=== PATIENT | female | born 1960 | race Caucasian/White ===

== ENCOUNTER 2018-07-01 14:41 | Emergency (ER) | payer BC, OTHER ==
--- NOTE | 2018-07-01 14:47 | EDM.PDOC ---
ED HPI GENERAL MEDICAL PROBLEM - General Chief Complaint: ENT Problem Stated Complaint: EAR INFECTION Time Seen by Provider: 07/01/18 14:44 Source of Information: Reports: Patient History Limitations: Reports: No Limitations - History of Present Illness INITIAL COMMENTS - FREE TEXT/NARRATIVE: HISTORY AND PHYSICAL: History of present illness: Patient is a 58-year-old female who presents to the emergency room with complaints of nausea and ear pain. Patient reports that she has had a known ear infection for approximately 2-3 weeks but has tried to hold off on seeing a provider. She states she has seen the analytical research chemist and was told there was nothing makes it to about her chronic ear infections. Reports that the pain has now made her nauseated and dizzy. Patient denies any fever, chills, headache, change in vision, syncope or near syncope. Denies hitting her head or any LOC. Denies any chest pain, back pain, shortness of breath or cough. Denies any abdominal pain, nausea, vomiting, diarrhea, constipation or dysuria. Has not noted any blood in urine or stool. Patient has been eating and drinking appropriately. Review of systems: As per history of present illness and below otherwise all systems reviewed and negative. Past medical history: As per history of present illness and as reviewed below otherwise noncontributory. Surgical history: As per history of present illness and as reviewed below otherwise noncontributory. Social history: See social history for further information Family history: As per history of present illness and as reviewed below otherwise noncontributory. Physical exam: General: Well-developed and well-nourished 58-year-old female. Alert and oriented. Nontoxic appearing and in no acute distress. HEENT: Atraumatic, normocephalic, pupils equal and reactive bilaterally, negative for conjunctival pallor or scleral icterus, mucous membranes moist, bilateral TMs erythematous with absent light reflex and no bulging, throat clear , neck supple, nontender, trachea midline. No drooling or trismus noted. No meningeal signs. No hot potato voice noted. Lungs: Clear to auscultation, breath sounds equal bilaterally, chest nontender. Heart: S1S2, regular rate and rhythm without overt murmur Abdomen: Soft, nondistended, nontender. Negative for masses or hepatosplenomegaly. Negative for costovertebral tenderness. Pelvis: Stable nontender. Genitourinary: Deferred. Rectal: Deferred. Skin: Intact, warm, dry. No lesions or rashes noted. Extremities: Atraumatic, moves all extremities per self with difficulty or deficits, negative for cords or calf pain. Neurovascular unremarkable. Neuro: Awake, alert, oriented. Cranial nerves II through XII unremarkable. Cerebellum unremarkable. Motor and sensory unremarkable throughout. Exam nonfocal. Notes: Did attempt to give Zofran and Rocephin IM to help alleviate her symptoms. Patient appears peaked and we'll give her IV fluids along with routine lab work to rule out any other complications. Lab work is unremarkable. EKG shows no acute findings; reviewed by Dr Grubbs as well. VSS. Supportive care measures were reviewed and discussed. Voices understanding and is agreeable to plan of care. Denies any further questions or concerns at this time. Diagnostics: CBC, CMP, troponin, EKG Therapeutics: Zofran ODT, Meclizine, Rocephin IM Prescription: Augmentin Impression: Bilateral Otitis Media Dizziness Plan: 1. Please use Tylenol and/or Ibuprofen as needed for pain and fever management. 2. Get plenty of Rest. Encourage fluids to prevent dehydration. 3. Please follow up with your primary care provider. Return to the ED as needed as discussed. Definitive disposition and diagnosis as appropriate pending reevaluation and review of above. left ear Pain Score (Numeric/FACES): 3 - Related Data Allergies Allergy/AdvReac Type Severity Reaction Status Date / Time No Known Allergies Allergy Verified 02/14/14 18:32 Home Meds: Home Meds . [No Known Home Meds] 02/14/14 [History] Past Medical History - Past Health History Medical/Surgical History: Denies Medical/Surgical History ED ROS ENT - Review of Systems Review Of Systems: ROS reveals no pertinent complaints other than HPI. ED EXAM, ENT - Physical Exam Exam: See Below (See dictation) Course - Vital Signs Last Recorded V/S: Last Vital Signs Temp 96.0 F 07/01/18 14:52 Pulse 97 07/01/18 14:52 Resp 16 07/01/18 14:52 BP 164/96 H 07/01/18 14:52 Pulse Ox 96 07/01/18 14:52 - Orders/Labs/Meds Orders: Active Orders 24 hr Category Date Time Status EKG Documentation Completion [RC] STAT Care 07/01/18 15:31 Active Ondansetron [Zofran ODT] Med 07/01/18 14:59 Active 8 mg PO ONETIME PRN Sodium Chloride 0.9% [Normal Saline] 1,000 ml Med 07/01/18 15:31 Active IV STAT Medication Orders Sodium Chloride (Normal Saline) 1,000 mls @ 999 mls/hr IV STAT ONE Stop: 07/01/18 16:31 Last Admin: 07/01/18 15:41 Dose: 999 mls/hr Ondansetron HCl (Zofran Odt) 8 mg PO ONETIME PRN PRN Reason: Nausea/Vomiting Last Admin: 07/01/18 15:13 Dose: 8 mg Labs: Laboratory Tests 07/01/18 07/01/18 Range/Units 15:39 15:39 WBC 9.67 (4.0-11.0) K/uL RBC 5.14 (4.30-5.90) M/uL Hgb 15.7 (12.0-16.0) g/dL Hct 44.4 (36.0-46.0) % MCV 86.4 (80.0-98.0) fL MCH 30.5 (27.0-32.0) pg MCHC 35.4 (31.0-37.0) g/dL RDW Std Deviation 40.4 (28.0-62.0) fl RDW Coeff of Thomas 13 (11.0-15.0) % Plt Count 188 (150-400) K/uL MPV 10.60 (7.40-12.00) fL Neut % (Auto) 84.2 H (48.0-80.0) % Lymph % (Auto) 10.2 L (16.0-40.0) % Toole % (Auto) 5.0 (0.0-15.0) % Eos % (Auto) 0.4 (0.0-7.0) % Baso % (Auto) 0.2 (0.0-1.5) % Neut # (Auto) 8.1 H (1.4-5.7) K/uL Lymph # (Auto) 1.0 (0.6-2.4) K/uL Toole # (Auto) 0.5 (0.0-0.8) K/uL Eos # (Auto) 0.0 (0.0-0.7) K/uL Baso # (Auto) 0.0 (0.0-0.1) K/uL Nucleated RBC % 0.0 /100WBC Nucleated RBCs # 0 K/uL Sodium 138 (136-145) mmol/L Potassium 4.1 (3.5-5.1) mmol/L Chloride 102 (98-107) mmol/L Carbon Dioxide 22.2 (21.0-32.0) mmol/L BUN 11 (7.0-18.0) mg/dL Creatinine 0.9 (0.6-1.0) mg/dL Est Cr Clr Drug Dosing 54.99 mL/min Estimated GFR (MDRD) > 60.0 ml/min Glucose 217 H (74-106) mg/dL Calcium 8.8 (8.5-10.1) mg/dL Total Bilirubin 0.5 (0.2-1.0) mg/dL AST 20 (15-37) IU/L ALT 38 (14-63) IU/L Alkaline Phosphatase 110 (46-116) U/L Troponin I < 0.050 (0.000-0.056) ng/mL Total Protein 7.8 (6.4-8.2) g/dL Albumin 4.0 (3.4-5.0) g/dL Globulin 3.8 (2.6-4.0) g/dL Albumin/Globulin Ratio 1.1 (0.9-1.6) Meds: Medications Generic Name Dose Route Start Last Admin Trade Name Freq PRN Reason Stop Dose Admin Sodium Chloride 1,000 mls @ 999 mls/hr 07/01/18 15:31 07/01/18 15:41 Normal Saline IV 07/01/18 16:31 999 mls/hr STAT ONE Administration Ondansetron HCl 8 mg 07/01/18 14:59 07/01/18 15:13 Zofran Odt PO 8 mg ONETIME PRN Administration Nausea/Vomiting Discontinued Medications Generic Name Dose Route Start Last Admin Trade Name Freq PRN Reason Stop Dose Admin Ceftriaxone Sodium 1 gm 07/01/18 15:01 07/01/18 15:13 Rocephin IM 07/01/18 15:02 1 gm ONETIME ONE Administration Lidocaine HCl 5 ml 07/01/18 15:05 07/01/18 15:13 Xylocaine-Mpf 1% INJECT 07/01/18 15:06 5 ml ONETIME ONE Administration Meclizine HCl 25 mg 07/01/18 15:01 07/01/18 15:13 Antivert PO 07/01/18 15:02 25 mg ONETIME ONE Administration Departure - Departure Time of Disposition: 16:29 Disposition: Home, Self-Care 01 Clinical Impression: Otitis media Qualifiers: Otitis media type: unspecified Laterality: bilateral Qualified Code(s): H66.93 - Otitis media, unspecified, bilateral - Discharge Information Referrals: PCP,Unknown [Primary Care Provider] - Forms: ED Department Discharge Additional Instructions: The following information is given to patients seen in the emergency department who are being discharged to home. This information is to outline your options for follow-up care. We provide all patients seen in our emergency department with a follow-up referral. The need for follow-up, as well as the timing and circumstances, are variable depending upon the specifics of your emergency department visit. If you don't have a primary care physician on staff, we will provide you with a referral. We always advise you to contact your personal physician following an emergency department visit to inform them of the circumstance of the visit and for follow-up with them and/or the need for any referrals to a consulting specialist. The emergency department will also refer you to a specialist when appropriate. This referral assures that you have the opportunity for follow-up care with a specialist. All of these measure are taken in an effort to provide you with optimal care, which includes your follow-up. Under all circumstances we always encourage you to contact your private physician who remains a resource for coordinating your care. When calling for follow-up care, please make the office aware that this follow-up is from your recent emergency room visit. If for any reason you are refused follow-up, please contact the [facility] at and asked to speak to the emergency department charge nurse. [facility] [address] [place] [id number] [place] [address] 1. Take the antibiotic as directed. Please use Tylenol and/or Ibuprofen as needed for pain and fever management. 2. Get plenty of Rest. Encourage fluids to prevent dehydration. 3. Please follow up with your primary care provider. Return to the ED as needed as discussed. - My Orders Last 24 Hours: My Active Orders 07/01/18 14:59 Ondansetron [Zofran ODT] 8 mg PO ONETIME PRN 07/01/18 15:31 EKG Documentation Completion [RC] STAT Sodium Chloride 0.9% [Normal Saline] 1,000 ml IV STAT - Assessment/Plan Last 24 Hours: My Active Orders 07/01/18 14:59 Ondansetron [Zofran ODT] 8 mg PO ONETIME PRN 07/01/18 15:31 EKG Documentation Completion [RC] STAT Sodium Chloride 0.9% [Normal Saline] 1,000 ml IV STAT
[2018-07-01] MEDS ORDERED: Ondansetron 4 MG Tab.DIS PO PRN (14:59)
[2018-07-01] MEDS ORDERED: cefTRIAXone 1 GM Vial IM ONE (15:01)
[2018-07-01] MEDS ORDERED: Meclizine 25 MG Tab PO ONE (15:01)
[2018-07-01] MEDS ORDERED: Sodium Chloride 0.9% 1,000 ML IV ONE (15:31)
[2018-07-01 16:24] LABS: CHLORIDE,CL 102 mmol/L (98-107); SODIUM,NA 138 mmol/L (136-145)
[2018-07-01] MEDS ORDERED: diazePAM 5 MG/ML MDV IVPUSH ONE (17:15)
--- NOTE | 2018-07-01 18:08 | CT ---
INDICATION: Headache, dizzy, left ear infection TECHNIQUE: CT Head without i.v. contrast. COMPARISON: None FINDINGS: CSF space: The ventricles are normal for age. Brain: No evidence of mass, acute infarction or hemorrhage is seen. No mass-effect or midline shift is seen. The brain parenchyma is otherwise normal in appearance with preservation of the kerns-white matter junction. Calvarium: The visualized paranasal sinuses are well aerated. The mastoid air cells are clear. The visualized orbits are grossly unremarkable. The calvarium is unremarkable in appearance with no fractures identified. IMPRESSION: 1. No evidence of acute infarction, intracranial hemorrhage, or mass-effect seen. Please note that all CT scans at this facility use dose modulation, iterative reconstruction, and/or weight-based dosing when appropriate to reduce radiation dose to as low as reasonably achievable. Dictated by: Matheus Morris MD @ 07/01/2018 18:07:24 (Electronically Signed)
== END 2018-07-01 18:17 | disposition home or self-care (01) ==
LOC: MW.ED 14:41
DX: H66.93 Otitis media, unspecified, bilateral (principal); R42 Dizziness and giddiness
CPT/HCPCS: 36415; 70450; 80053; 84484; 85025; 93005; 96361; 96372; 96374; 99284; A9270; J0696; J2001; J7040; 99283